=== PATIENT | female | born 1990 | race Caucasian/White ===

== ENCOUNTER 2019-09-14 13:31 | Inpatient (IN) | payer BC ==
[2019-09-20] MEDS ORDERED: RINGERS SOLUTION,LACTATED 1,000 ML IV ONE (19:38)
[2019-09-20] MEDS ORDERED: RINGERS SOLUTION,LACTATED 1,000 ML IV PRN (19:38)
[2019-09-20] MEDS ORDERED: DINOPROSTONE 10 MG VAGINAL INSERT.SR PV PRN (19:38)
[2019-09-20] MEDS ORDERED: ZOLPIDEM TARTRATE 5 MG TABLET PO PRN (19:49)
[2019-09-20] MEDS ORDERED: ACETAMINOPHEN 325 MG TABLET PO PRN (19:49)
[2019-09-20] MEDS ORDERED: MAG HYDROX/AL HYDROX/SIMETH SUSP 30 ML UDCUP PO PRN (19:49)
[2019-09-20 20:37] LABS: ABSOLUTE EOSINOPHILS # (AUTO) 0.1 10^3/uL (0.0-0.6); ABSOLUTE LYMPHOCYTES (AUTO) 1.2 10^3/uL (0.5-4.7); ABSOLUTE MONOCYTES (AUTO) 0.7 10^3/uL (0.1-1.4); ABSOLUTE NEUT (AUTO) 11.5 10^3/uL (1.7-8.2); BASOPHILS % (AUTO) 0.2 % (0-2); HEMATOCRIT 38.7 % (36.0-47.0); HEMOGLOBIN 13.4 g/dL (12.0-15.5); LYMPHOCYTES % (AUTO) 9.2 % (13-45); MEAN CORPUSCULAR HEMOGLOBIN 30.7 pg (27.0-33.4); MEAN CORPUSCULAR HGB CONC 34.6 g/dL (32.0-36.0); MEAN CORPUSCULAR VOLUME 89 fl (80-97); MONOCYTES % (AUTO) 4.9 % (3-13); PLATELET COUNT 230 10^3/uL (150-450); RED BLOOD COUNT 4.36 10^6/uL (3.72-5.28); RED CELL DISTRIBUTION WIDTH 12.5 % (11.5-14.0); SEGMENTED NEUTROPHILS % (AUTO) 84.7 % (42-78); TOTAL CELLS COUNTED % (AUTO) 100 %; WHITE BLOOD COUNT 13.5 10^3/uL (4.0-10.5)
[2019-09-20] MEDS ORDERED: DINOPROSTONE 10 MG VAGINAL INSERT.SR ONE (20:51)
[2019-09-20 20:53] LABS: APPEARANCE,URINE CLEAR; BILIRUBIN,URINE NEGATIVE (NEGATIVE); COLOR,URINE YELLOW; GLUCOSE, URINE NEGATIVE (NEGATIVE); KETONES,URINE NEGATIVE (NEGATIVE); LEUKOCYTE ESTERASE,URINE NEGATIVE (NEGATIVE); NITRITE,URINE NEGATIVE (NEGATIVE); PROTEIN,URINE 30 mg/dL (NEGATIVE); URINE SPECIFIC GRAVITY 1.015; UROBILINOGEN,URINE NEGATIVE mg/dL (<2.0)
[2019-09-20 21:15] LABS: URINE AMPHETAMINES SCREEN NEGATIVE; URINE BARBITURATES SCREEN NEGATIVE; URINE BENZODIAZEPINES SCREEN NEGATIVE; URINE COCAINE SCREEN NEGATIVE; URINE MARIJUANA (THC) SCREEN NEGATIVE; URINE METHADONE SCREEN NEGATIVE; URINE PHENCYCLIDINE SCREEN NEGATIVE
[2019-09-20 22:58] LABS: ALBUMIN 3.5 g/dL (3.5-5.0); ALKALINE PHOSPHATASE 158 U/L (38-126); ANION GAP 10 (5-19); ASPARTATE AMINO TRANSFERASE 16 U/L (14-36); BILIRUBIN,DIRECT 0.2 mg/dL (0.0-0.4); BILIRUBIN,TOTAL 0.2 mg/dL (0.2-1.3); BLOOD UREA NITROGEN 11 mg/dL (7-20); CALCIUM 9.8 mg/dL (8.4-10.2); CARBON DIOXIDE 24 mmol/L (22-30); CHLORIDE 102 mmol/L (98-107); GLUCOSE 86 mg/dL (75-110); TOTAL PROTEIN 6.7 g/dL (6.3-8.2); URIC ACID 3.7 mg/dL (2.5-6.2)
[2019-09-20 23:01] LABS: UR PRO/CREAT RATIO RESULT 0.2 mg/mg (0.0-0.2); URINE PROTEIN 14.3 mg/dL (<12)
[2019-09-21] MEDS ORDERED: OXYTOCIN/NORMAL SALINE 20 UNIT/1,000 ML RTUINJ IV PRN ×2 (06:00→17:17)
--- NOTE | 2019-09-21 07:13 | Admission Physical ---
Datetime Report Generated by CPN: 09/21/2019 07:13 CURRENT ADMISSION Chief Complaint: Scheduled Induction of Labor Indication for Induction: Post Dates Admit Impression : Postterm, Intrauterine ; Induction of Labor Admit Plan: Initiate Labor Protocol; Initiate Labor Induction Protocol ALLERGIES Medication Allergies: Yes Medication Allergies: sulfamethoxazole/Vomiting (09/20/2019); trimethoprim/Vomiting (09/20/2019) Latex: No Latex Allergies OBSTETRICAL HISTORY EDC: 09/14/2019 00:00 : 1 Para: 0 Term: 0 : 0 SAB: 0 IAB: 0 Ectopic: 0 Livin Cesareans: 0 VBACs: 0 Multiple Births: 0 Gestational Diabetes: No Rh Sensitization: No Incompetent Cervix: No ROSE: No Infertility: No ART Treatment: No Uterine Anomaly: No IUGR: No Hx Previous C/S: No Macrosomia: No Hx Loss/Stillborn: No PIH: No Hx : No Placenta Previa/Abruption: No Depression/PP Depression: No PTL/PROM: No Post Hemorrhage: No Current Procedures: Ultrasound; NST Obstetrical History Comments: G1-Current SEE RECORDS Alcohol: No Marijuana : No Cocaine: No Other Illicit Drugs: No Cigarettes: Never Smoker. 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 Heart Disease: No Hosp/Surgery: No Autoimmune Disorder: No Anesthetic Complications: No Kidney Disease: No Abnormal Pap Smear: No Neuro/Epilepsy: No Psychiatric Disorders: No Other Medical Diseases: No Hepatitis/Liver Disease: No Significant Family History: No Varicosities/Phlebitis: No Trauma/Violence : No Thyroid Dysfunction: No INFECTIOUS HISTORY Gonorrhea: No Genital Herpes: No Chlamydia: No Tuberculosis: No Syphilis: No Hepatitis: No HIV/AIDS Exposure: No Rash or Viral Illness: No HPV: No PHYSICAL EXAM General: Normal HEENT: Normal Neurologic: Normal Thyroid: Normal Heart: Normal Lungs: Normal Breast: Normal Back: Normal Abdomen: Normal Genitourinary Exam: Normal Extremities: Normal DTRs: Normal Pelvic Type: Adequate Vital Signs: Reviewed; Within Normal Limits VAGINAL EXAM Dilatation: 1 Effacement: 0 Station: -3 Contraction Comments: no regular MEMBRANES Membranes: Intact FETUS A EGA: 41.0 Monitoring: External US FHR- Baseline: 130 Variability: Moderate 6-25bpm Accelerations: 15X15 Decelerations: None Admit Comment: G1 at 41.0 wks EGA for IOL due to post dates -Admit to LDR -VS q 1 hr -CEFM and toco -cervidil tonight placed 2100 -GBS negative -Plan for PLANS FOR LABOR AND DELIVERY Labor and Delivery: None Pain Management: Epidural Feeding Preference: Breast Benefit of Breast Feed Discussed: Yes Circumcision: No INFORMED CONSENT Informed Consent Obtained: Vaginal Delivery; Section Delivery; Dilatation and Curretage; Risks, Benefits and Alternatives Discussed Signature: with User ID: [email or web address] : with User ID: [email or web address]
[2019-09-21] MEDS ORDERED: MISOPROSTOL 0.2 MG TABLET ONE ×3 (09:29→22:30)
[2019-09-21] MEDS ORDERED: LIDOCAINE 1% INJ-PF (10 MG/ML) 30 ML SDV ONE (09:29)
[2019-09-21] MEDS ORDERED: FENTANYL/BUPIVACAINE/NS/PF 300 MCG/150 ML RTUINJ EPI ONE (09:29)
[2019-09-21] MEDS ORDERED: OXYTOCIN 10 UNIT/ML VIAL ONE (09:29)
[2019-09-21] MEDS ORDERED: EPHEDRINE SULFATE INJ 50 MG/1 ML AMPULE ONE (09:29)
[2019-09-21] MEDS ORDERED: OXYTOCIN/NORMAL SALINE 20 UNIT/1,000 ML RTUINJ ONE (09:30)
[2019-09-21] MEDS ORDERED: BUPIVACAINE HCL 0.25 % INJ/PF (2.5 MG/1 ML) 30 ML VIAL ONE (09:30)
[2019-09-21] MEDS ORDERED: PSEUDOEPHEDRINE HCL 30 MG TABLET PO PRN (17:17)
[2019-09-21] MEDS ORDERED: BENZOCAINE/MENTHOL AEROSOL SPRAY 56 ML TOP PRN (17:17)
[2019-09-21] MEDS ORDERED: GLYCERIN/WITCH HAZEL LEAF 1 EACH MED..WIPE TP PRN (17:17)
[2019-09-21] MEDS ORDERED: PROMETHAZINE HCL 25 MG SUPP.RECT PR PRN (17:17)
[2019-09-21] MEDS ORDERED: MAGNESIUM HYDROXIDE SUSP 30 ML UDCUP PO PRN (17:17)
[2019-09-21] MEDS ORDERED: PROMETHAZINE HCL INJ 25 MG/1 ML VIAL IV PRN (17:17)
[2019-09-21] MEDS ORDERED: ACETAMINOPHEN 325 MG TABLET PO PRN (17:17)
[2019-09-21] MEDS ORDERED: DIBUCAINE 1% OINTMENT 28 GM TP PRN (17:17)
[2019-09-21] MEDS ORDERED: PROMETHAZINE HCL 25 MG TABLET PO PRN (17:17)
[2019-09-21] MEDS ORDERED: NA PHOS,M-B/NA PHOS,DI-BA (ADULT) 133 ML ENEMA PR PRN (17:17)
[2019-09-21] MEDS ORDERED: MEASLES,MUMPS&RUBELLA VACC/PF 0.5 ML VIAL SUBCUT PRN (17:17)
[2019-09-21] MEDS ORDERED: DIPHENHYDRAMINE HCL 25 MG CAPSULE PO PRN (17:17)
[2019-09-21] MEDS ORDERED: DIPH/PERTUSS(ACELL)/TETANUS VAC/PF 0.5 ML SYR (>=10YO) IM PRN (17:17)
--- NOTE | 2019-09-21 18:11 | Delivery Summary ---
Del Sum A-C Datetime Report Generated by CPN: 09/21/2019 18:10 DELIVERY PERSONNEL DELIVERY PERSONNEL: [id number] Delivery Doctor:: Jaja Ramos CNM Labor and Delivery Nurse:: Reyna Henderson RNveterinary laboratory technician Nurse:: AGUILAR Brewster Nursery Nurse:: Cher Holt RN Nursery Nurse:: Elisa Valdovinos RN Motor Grader Operator/LOCKSTITCH SLEEVE SETTER: Nellie Cazares, ST MATERNAL INFORMATION Delivery Anesthesia: Epidural Medications After Delivery: Pitocin Bolus-Please Comment Delivery QBL: 50 Maternal Complications: None Provider Comments: after laboring down pt began pushing and with much effort made some progress. At some point a segment of cord was palpated but able to move back and out of the way. Dr. Vargas called into room and assessed pt for forcep or kiwi extraction but baby recovered well and continue to tolerate pushing. Pt continue pushing and eventually delivered a viable baby boy thru nuchal, bilateral compound hands, arm and foot cord. Vigorous respiratory effort and cry with tactile stimulation, terminal meconium noted. Cord clamped x2 and cut by FOB (3vc noted, cord blood obtained). Vaginal and perineal inspection revealed abrasion as noted. Fundus firm scant bleeding. Mother and baby remain skin to skin and bonding at this time. Nursery in room for delivery LABOR SUMMARY EDC: 09/14/2019 00:00 No. Babies in Womb: 1 Attempted: No Labor Anesthesia: Epidural LABOR INFORMATION Reason for Induction: Post Dates Onset of Labor: 09/21/2019 09:00 Complete Dilatation: 09/21/2019 12:13 Cervical Ripening Agents: Cervidil Oxytocin: Augmentation Group B Beta Strep: negative Antibiotics # of Doses: 0 Steroids Given: None Reason Steroids Not Administered: Not Applicable MEMBRANES Membranes Rupture Method: Spontaneous Rupture of Membranes: 09/21/2019 12:13 Length of Rupture (hr): 4.48 Amniotic Fluid Color: Clear Amniotic Fluid Amount: Small Amniotic Fluid Odor: Normal STAGES OF LABOR Stage 1 hr: 3 Stage 1 min: 13 Stage 2 hr: 4 Stage 2 min: 29 Stage 3 hr: 0 Stage 3 min: 3 Total Time in Labor hr: 7 Total Time in Labor min: 45 VAGINAL DELIVERY Episiotomy: None Laceration #1: None Laceration Extension #1: N/A Other Laceration: right labial Laceration Repair: Not Applicable Laceration Repair Note: hemostatic no repair needed Sponge Count Correct: N/A Sharps Count Correct: N/A CSECTION DELIVERY Primary Indication: N/A Secondary Indication: N/A CSection Incidence: N/A Labor: N/A Elective: N/A CSection Incision: N/A BABY A INFORMATION Delivery Date/Time: 09/21/2019 16:42 Method of Delivery: Vaginal Born in Route : No : N/A Forceps: N/A Vacuum Extraction: N/A Shoulder Dystocia : No PRESENTATION/POSITION BABY A Presentation: Cephalic Cephalic Presentation: Vertex Vertex Position: Right Occipital Transverse Breech Presentation: N/A PLACENTA INFORMATION BABY A Placenta Delivery Time : 09/21/2019 16:45 Placenta Method of Delivery: Spontaneous Placenta Status: Delivered SCORES BABY A Heart Rate 1 min: >100 bpm Resp Effort 1 min: Good Cry Reflex Irritability 1 min: Cough or Sneeze or Pulls Away Muscle Tone 1 min: Some Flexion of Extremities Color 1 min: Blue/Pale SCORE 1 MIN: 7 Heart Rate 5 min: >100 bpm Resp Effort 5 min: Good Cry Reflex Irritability 5 min: Cough or Sneeze or Pulls Away Muscle Tone 5 min: Some Flexion of Extremities Color 5 min: Body [place], Extremities Blue SCORE 5 MIN: 8 INFORMATION BABY A Gestational Age at Delivery: 41.0 Gestational Status: Late Term- 41- 41.6 Weeks Outcome : Liveborn Infant Condition : Stable Infant Sex: Female IDENTIFICATION BABY A Infant Verification Date/Time: 09/21/2019 16:59 ID Band Number: [id number] Mother's Name Verified: Yes Infant RN Verifying : [email or web address] WEIGHT/LENGTH BABY A Infant Birthweight (gm): 2985 Weight (lb): 6 Infant Weight (oz): 9 Infant Length (in): 21.75 Length (cm): 55.25 CORD INFORMATION BABY A No. Cord Vessels: 3 Nuchal Cord : Around Neck x1, Loose Nuchal Cord- Other: body, foot Cord Blood Taken: Yes-For Eval (Mom's Blood Type - or O+) Infant Suction: None ASSESSMENT BABY A Complications: Meconium Complications- Other: body cord, compund presentation Physical Findings at Delivery: Caput Succedaneum; Molding of the Head; Puncture Wound from Scalp Electrode Infant Respirations: Appears Normal Skin to Skin: Yes Housing Counselor/ALS Called : No Infant Care By: Сергей Holt RN Transferred To: Remains with Mother BABY B INFORMATION : N/A SIGNATURES Assignment: Elaine Vargas MD Signature: with User ID: [email or web address] : with User ID: [email or web address]
[2019-09-21] MEDS ORDERED: BENZOCAINE/MENTHOL AEROSOL SPRAY 56 ML ONE (18:21)
[2019-09-21] MEDS ORDERED: IBUPROFEN 800 MG TABLET ONE (18:21)
[2019-09-21] MEDS: IBUPROFEN 800 MG TABLET PO SCH (18:24)
[2019-09-21 18:41] LABS: HEMATOCRIT 35.5 % (36.0-47.0); HEMOGLOBIN 12.2 g/dL (12.0-15.5); MEAN CORPUSCULAR HEMOGLOBIN 30.1 pg (27.0-33.4); MEAN CORPUSCULAR HGB CONC 34.5 g/dL (32.0-36.0); MEAN CORPUSCULAR VOLUME 87 fl (80-97); PLATELET COUNT 206 10^3/uL (150-450); RED BLOOD COUNT 4.06 10^6/uL (3.72-5.28); RED CELL DISTRIBUTION WIDTH 12.5 % (11.5-14.0); WHITE BLOOD COUNT 25.8 10^3/uL (4.0-10.5)
[2019-09-21 18:57] LABS: ALBUMIN 3.3 g/dL (3.5-5.0); ALKALINE PHOSPHATASE 157 U/L (38-126); ANION GAP 8 (5-19); ASPARTATE AMINO TRANSFERASE 24 U/L (14-36); BILIRUBIN,DIRECT 0.1 mg/dL (0.0-0.4); BILIRUBIN,TOTAL 0.4 mg/dL (0.2-1.3); BLOOD UREA NITROGEN 11 mg/dL (7-20); CARBON DIOXIDE 22 mmol/L (22-30); CHLORIDE 104 mmol/L (98-107); GLUCOSE 92 mg/dL (75-110); POTASSIUM 3.9 mmol/L (3.6-5.0); TOTAL PROTEIN 6.2 g/dL (6.3-8.2); URIC ACID 4.7 mg/dL (2.5-6.2)
[2019-09-21 19:11] LABS: ABSOLUTE LYMPHOCYTES# (MANUAL) 0.5 10^3/uL (0.5-4.7); ABSOLUTE MONOCYTES # (MANUAL) 1.3 10^3/uL (0.1-1.4); BAND NEUTROPHILS % (MANUAL) 1 % (3-5); BASOPHILS % (MANUAL) 0 % (0-2); EOSINOPHILS % (MANUAL) 0 % (0-6); LYMPHOCYTES % (MANUAL) 2 % (13-45); MONOCYTES % (MANUAL) 5 % (3-13); PLATELET COMMENT ADEQUATE; RBC MORPHOLOGY COMMENT NORMO-CYTIC/CHROMIC; SEGMENTED NEUTROPHILS % (MAN) 92 % (42-78); TOTAL CELLS COUNTED 100
[2019-09-21] MEDS ORDERED: NIFEDIPINE 30 MG TAB.ER.24 PO ONE (19:43)
[2019-09-21] MEDS: FAMOTIDINE 20 MG TABLET PO SCH (22:00)
[2019-09-21] MEDS ORDERED: LOPERAMIDE HCL 2 MG CAPSULE ONE (22:28)
[2019-09-21] MEDS ORDERED: CARBOPROST TROMETHAMINE INJ 250 MCG/1 ML AMPULE ONE (22:29)
[2019-09-21] MEDS ORDERED: FENTANYL CITRATE INJ/PF 100 MCG/2 ML AMPUL ONE (23:06)
[2019-09-21] MEDS ORDERED: NORMAL SALINE 250 ML IV PRN (23:17)
[2019-09-21] MEDS ORDERED: PIPERACILLIN/TAZOBACTAM 3.375 GM VIAL IV PRN (23:22)
[2019-09-21 23:48] LABS: HEMATOCRIT 27.2 % (36.0-47.0); MEAN CORPUSCULAR HEMOGLOBIN 30.5 pg (27.0-33.4); MEAN CORPUSCULAR VOLUME 87 fl (80-97); PLATELET COUNT 235 10^3/uL (150-450); RED BLOOD COUNT 3.12 10^6/uL (3.72-5.28); RED CELL DISTRIBUTION WIDTH 12.4 % (11.5-14.0); WHITE BLOOD COUNT 23.6 10^3/uL (4.0-10.5)
[2019-09-21 23:50] LABS: HEMOGLOBIN 9.5 g/dL (12.0-15.5)
[2019-09-21] MEDS ORDERED: OXYTOCIN/NORMAL SALINE 20 UNIT/1,000 ML RTUINJ IV ONE (23:59)
[2019-09-21] MEDS ORDERED: CARBOPROST TROMETHAMINE INJ 250 MCG/1 ML AMPULE IM ONE (23:59)
[2019-09-21] MEDS ORDERED: DIPHENOXYLATE HCL/ATROP SULF 2.5-0.025 MG TABLET PO ONE (23:59)
[2019-09-21] MEDS ORDERED: MISOPROSTOL 0.1 MG TABLET PR ONE (23:59)
[2019-09-22 00:12] LABS: ABSOLUTE LYMPHOCYTES# (MANUAL) 0.7 10^3/uL (0.5-4.7); ABSOLUTE MONOCYTES # (MANUAL) 0.7 10^3/uL (0.1-1.4); BASOPHILS % (MANUAL) 0 % (0-2); EOSINOPHILS % (MANUAL) 0 % (0-6); LYMPHOCYTES % (MANUAL) 3 % (13-45); MONOCYTES % (MANUAL) 3 % (3-13); SEGMENTED NEUTROPHILS % (MAN) 94 % (42-78); TOTAL CELLS COUNTED 100
[2019-09-22 00:13] LABS: PLATELET COMMENT ADEQUATE
[2019-09-22 00:18] LABS: RBC MORPHOLOGY COMMENT NORMO-CYTIC/CHROMIC
[2019-09-22] MEDS: NIFEDIPINE 30 MG TAB.ER.24 PO SCH ×3 (00:29→22:03)
[2019-09-22] MEDS ORDERED: FENTANYL CITRATE INJ/PF 100 MCG/2 ML AMPUL IV ONE (00:30)
[2019-09-22] MEDS: PIPERACILLIN/TAZOBACTAM 3.375 GM VIAL IV SCH ×2 (00:55→05:55)
[2019-09-22] MEDS: IBUPROFEN 800 MG TABLET PO SCH ×3 (02:26→17:09)
[2019-09-22 07:09] LABS: HEMATOCRIT 23.2 % (36.0-47.0); MEAN CORPUSCULAR HEMOGLOBIN 30.1 pg (27.0-33.4); MEAN CORPUSCULAR HGB CONC 34.2 g/dL (32.0-36.0); MEAN CORPUSCULAR VOLUME 88 fl (80-97); PLATELET COUNT 213 10^3/uL (150-450); RED BLOOD COUNT 2.63 10^6/uL (3.72-5.28); RED CELL DISTRIBUTION WIDTH 12.7 % (11.5-14.0); WHITE BLOOD COUNT 17.6 10^3/uL (4.0-10.5)
[2019-09-22 07:16] LABS: HEMOGLOBIN 7.9 g/dL (12.0-15.5)
--- NOTE | 2019-09-22 07:44 | PDOC PROGRESS REPORT ---
Subjective Progress Note for:: 09/21/19 Subjective:: called to room for ppH at 4701-4540 approx 6 hours post delivery Reason For Visit: /INDUCTION/delivered/now pph Physical Exam - Physical Exam Vital Signs: Temp Pulse Resp BP Pulse Ox 98.0 F 105 H 18 133/79 H 99 09/22/19 03:17 09/22/19 03:17 09/22/19 03:17 09/22/19 03:17 09/22/19 03:17 Intake & Output 09/21/19 09/22/19 09/23/19 06:59 06:59 06:59 Weight 101.1 kg General appearance: PRESENT: cooperative, mild distress Head exam: PRESENT: atraumatic, normocephalic Respiratory exam: PRESENT: clear to auscultation calli, symmetrical, unlabored Cardiovascular exam: PRESENT: RRR. ABSENT: diastolic murmur, rubs, systolic murmur Pulses: PRESENT: normal dorsalis pedis pul, +2 pedal pulses bilateral GI/Abdominal exam: PRESENT: normal bowel sounds, soft. ABSENT: distended, guarding, mass, organolmegaly, rebound, tenderness Rectal exam: PRESENT: deferred Neurological exam: PRESENT: alert, awake, oriented to person, oriented to place, oriented to time, oriented to situation, CN II-XII grossly intact. ABSENT: motor sensory deficit Psychiatric exam: PRESENT: appropriate affect, normal mood. ABSENT: homicidal ideation, suicidal ideation Skin exam: PRESENT: dry, intact, warm. ABSENT: cyanosis, rash Result Laboratory Results: 09/22/19 06:39 09/21/19 18:29 09/20/19 09/21/19 09/21/19 20:20 18:29 18:29 WBC 25.8 H RBC 4.06 Hgb 12.2 Hct 35.5 L MCV 87 MCH 30.1 MCHC 34.5 RDW 12.5 Plt Count 206 Seg Neutrophils % Not Reportable Sodium 134.2 L Potassium 3.9 Chloride 104 Carbon Dioxide 22 Anion Gap 8 BUN 11 Creatinine 0.52 Est GFR ( Amer) > 60 Glucose 92 Uric Acid 4.7 Calcium 9.0 Total Bilirubin 0.4 AST 24 Alkaline Phosphatase 157 H Total Protein 6.2 L Albumin 3.3 L Blood Type O POSITIVE Antibody Screen NEGATIVE 09/21/19 09/22/19 23:33 06:39 WBC 23.6 H 17.6 H RBC 3.12 L 2.63 L Hgb 9.5 L D 7.9 L Hct 27.2 L 23.2 L MCV 87 88 MCH 30.5 30.1 MCHC 35.0 34.2 RDW 12.4 12.7 Plt Count 235 213 Seg Neutrophils % Not Reportable Sodium Potassium Chloride Carbon Dioxide Anion Gap BUN Creatinine Est GFR ( Amer) Glucose Uric Acid Calcium Total Bilirubin AST Alkaline Phosphatase Total Protein Albumin Blood Type Antibody Screen Status: Imported from PACS Assessment & Plan - Diagnosis (1) Delayed hemorrhage, delivered, current hospitalization Is this a current diagnosis for this admission?: Yes Plan: 657ml QBL for pph. Stat CBC ordered [place] to gravity placed. 350ml urine in bag Hemabate, cytotec given. Pitocin bag hung for 125ml/hr reviewed may need transfusion. [place] performed and clot removed uterine tone improved. Zosyn ordered for 24 hours due to uterine manipulation (2) Hypertension affecting , delivered, current hospitalization Is this a current diagnosis for this admission?: Yes Plan: procardia for BP control (3) Vaginal delivery Is this a current diagnosis for this admission?: Yes Plan: now with delayed pph - Time Time Spent with patient: 35 or more minutes Medications reviewed and adjusted accordingly: Yes Anticipated discharge: Home Within: within 36 hours - Inpatient Certification Based on my medical assessment, after consideration of the patient's comorbidities, presenting symptoms, or acuity I expect that the services needed warrant INPATIENT care.: Yes I certify that my determination is in accordance with my understanding of Medicare's requirements for reasonable and necessary INPATIENT services [42 CFR 412.3e].: Yes Medical Necessity: Need Close Monitoring Due to Risk of Patient Decompensation, Need For IV Fluids, Need for Pain Control, Need for IV Antibiotics Post Hospital Care: D/C [place] Documentation
[2019-09-22] MEDS: SENNOSIDES/DOCUSATE 8.6-50 MG 1 EACH TABLET PO SCH ×2 (09:27→11:52)
[2019-09-22] MEDS: FERROUS SULFATE 325 MG TABLET PO SCH ×3 (09:28→17:09)
[2019-09-22] MEDS: DOCUSATE SODIUM 100 MG CAPSULE PO SCH ×3 (09:29→17:10)
[2019-09-22] MEDS: PRENATAL VITAMIN W DHA CAPSULE PO SCH (09:29)
[2019-09-22] MEDS: FAMOTIDINE 20 MG TABLET PO SCH ×2 (11:52→22:17)
[2019-09-22 14:32] LABS: HEMATOCRIT 22.8 % (36.0-47.0); MEAN CORPUSCULAR HEMOGLOBIN 30.7 pg (27.0-33.4); MEAN CORPUSCULAR HGB CONC 34.9 g/dL (32.0-36.0); MEAN CORPUSCULAR VOLUME 88 fl (80-97); PLATELET COUNT 195 10^3/uL (150-450); RED BLOOD COUNT 2.59 10^6/uL (3.72-5.28); RED CELL DISTRIBUTION WIDTH 12.8 % (11.5-14.0); WHITE BLOOD COUNT 14.7 10^3/uL (4.0-10.5)
[2019-09-22] MEDS: PIPERACILLIN SODIUM/TAZOBACTAM 3.375 GM in NORMAL SALINE 100 ML IV SCH ×2 (15:13→22:01)
[2019-09-23] MEDS: IBUPROFEN 800 MG TABLET PO SCH ×2 (02:56→09:03)
[2019-09-23 05:29] LABS: HEMATOCRIT 24.3 % (36.0-47.0); HEMOGLOBIN 8.5 g/dL (12.0-15.5); MEAN CORPUSCULAR HEMOGLOBIN 30.5 pg (27.0-33.4); MEAN CORPUSCULAR HGB CONC 34.8 g/dL (32.0-36.0); MEAN CORPUSCULAR VOLUME 88 fl (80-97); PLATELET COUNT 226 10^3/uL (150-450); RED BLOOD COUNT 2.77 10^6/uL (3.72-5.28); RED CELL DISTRIBUTION WIDTH 12.6 % (11.5-14.0); WHITE BLOOD COUNT 14.1 10^3/uL (4.0-10.5)
[2019-09-23] MEDS: FERROUS SULFATE 325 MG TABLET PO SCH (09:03)
[2019-09-23] MEDS: PRENATAL VITAMIN W DHA CAPSULE PO SCH (09:03)
[2019-09-23] MEDS: DOCUSATE SODIUM 100 MG CAPSULE PO SCH (09:05)
[2019-09-23] MEDS: FAMOTIDINE 20 MG TABLET PO SCH (09:06)
--- NOTE | 2019-09-23 10:02 | PDOC DISCHARGE SUMMARY ---
Impression - Admit/DC Date/PCP Admission Date/Primary Care Provider: 09/20/19 19:09 AUSTIN FREEMAN MD Discharge Date: 09/23/19 - PP Day #2, doing well today, states feels better, denies dizziness or tachycardia. s/p 1 unit PRBC after delayed PPH. Pt desires to go home today. O+ Rubella Immune, . Hx of elevated BP at the end of her , but have been normal since delivering. - Discharge Diagnosis (1) Blood transfusion during current hospitalization Is this a current diagnosis for this admission?: Yes (2) Delayed hemorrhage, delivered, current hospitalization Is this a current diagnosis for this admission?: Yes (3) Encounter for induction of labor Is this a current diagnosis for this admission?: Yes (4) Hypertension affecting , delivered, current hospitalization Is this a current diagnosis for this admission?: Yes (5) Post-dates Is this a current diagnosis for this admission?: Yes (6) Vaginal delivery Is this a current diagnosis for this admission?: Yes - Additional Information Resuscitation Status: Full Code Discharge Diet: As Tolerated, Regular Discharge Activity: Activity As Tolerated, No Lifting Over 10 Pounds, Pelvic Rest Referrals: AUSTIN FREEMAN MD [Primary Care Provider] - Prescriptions: Ferrous Sulfate [Feosol 325 mg Tablet] 325 mg PO BID #60 tablet Ibuprofen [Motrin 800 mg Tablet] 800 mg PO Q8A #60 tablet Home Medications: Ferrous Sulfate [Feosol 325 mg Tablet] 325 mg PO BID #60 tablet 09/23/19 Ibuprofen [Motrin 800 mg Tablet] 800 mg PO Q8A #60 tablet 09/23/19 Vit/Dha [ Multi + Dha Capsule] 1 cap PO DAILY capsule 09/23/19 HPI Reason(s) for Admission: Induction of Labor Admission Note: elevated BP Procedures: NST, Ultrasound Intrapartum Procedure(s): Spontaneous Vaginal Delivery Intrapartum Procedure Note: manual sweep of uterus d/t PPH Complication(s): Hemorrhage-Uterine [place] Hospital Course Hospital Course: pt remains stable Results Laboratory Results: WBC 14.1 10^3/uL (4.0-10.5) H 09/23/19 05:17 RBC 2.77 10^6/uL (3.72-5.28) L 09/23/19 05:17 Hgb 8.5 g/dL (12.0-15.5) L 09/23/19 05:17 Hct 24.3 % (36.0-47.0) L 09/23/19 05:17 MCV 88 fl (80-97) 09/23/19 05:17 MCH 30.5 pg (27.0-33.4) 09/23/19 05:17 MCHC 34.8 g/dL (32.0-36.0) 09/23/19 05:17 RDW 12.6 % (11.5-14.0) 09/23/19 05:17 Plt Count 226 10^3/uL (150-450) 09/23/19 05:17 Lymph % (Auto) Not Reportable 09/21/19 23:33 [place] % (Auto) Not Reportable 09/21/19 23:33 Eos % (Auto) Not Reportable 09/21/19 23:33 Baso % (Auto) Not Reportable 09/21/19 23:33 Absolute Neuts (auto) Not Reportable 09/21/19 23:33 Absolute Lymphs (auto) Not Reportable 09/21/19 23:33 Absolute Monos (auto) Not Reportable 09/21/19 23:33 Absolute Eos (auto) Not Reportable 09/21/19 23:33 Absolute Basos (auto) Not Reportable 09/21/19 23:33 Total Counted 100 09/21/19 23:33 Seg Neutrophils % Not Reportable 09/21/19 23:33 Seg Neuts % (Manual) 94 % (42-78) H 09/21/19 23:33 Band Neutrophils % 1 % (3-5) L 09/21/19 18:29 Lymphocytes % (Manual) 3 % (13-45) L 09/21/19 23:33 Monocytes % (Manual) 3 % (3-13) 09/21/19 23:33 Eosinophils % (Manual) 0 % (0-6) 09/21/19 23:33 Basophils % (Manual) 0 % (0-2) 09/21/19 23:33 Abs Neuts (Manual) 22.2 10^3/uL (1.7-8.2) H 09/21/19 23:33 Abs Lymphs (Manual) 0.7 10^3/uL (0.5-4.7) 09/21/19 23:33 Abs Monocytes (Manual) 0.7 10^3/uL (0.1-1.4) 09/21/19 23:33 Absolute Eos (Manual) 0.0 10^3/uL (0.0-0.6) 09/21/19 23:33 Abs Basophils (Manual) 0.0 10^3/uL (0.0-0.2) 09/21/19 23:33 Platelet Comment ADEQUATE 09/21/19 23: RBC Morph Comment NORMO-CYTIC/CHROMIC 09/21/19 23: APTT 25.1 SEC (23.5-35.8) 09/21/19 23:33 Sodium 134.2 mmol/L (137-145) L 09/21/19 18: Potassium 3.9 mmol/L (3.6-5.0) 09/21/19 18: Chloride 104 mmol/L (98-107) 09/21/19 18: Carbon Dioxide 22 mmol/L (22-30) 09/21/19 18:29 Anion Gap 8 (5-19) 09/21/19 18:29 BUN 11 mg/dL (7-20) 09/21/19 18:29 Creatinine 0.52 mg/dL (0.52-1.25) 09/21/19 18:29 Est GFR ( Amer) > 60 (>60) 09/21/19 18:29 Est GFR (MDRD) Non-Af > 60 (>60) 09/21/19 18: Glucose 92 mg/dL (75-110) 09/21/19 18: Uric Acid 4.7 mg/dL (2.5-6.2) 09/21/19 18:29 Calcium 9.0 mg/dL (8.4-10.2) 09/21/19 18: Total Bilirubin 0.4 mg/dL (0.2-1.3) 09/21/19 18: Direct Bilirubin 0.1 mg/dL (0.0-0.4) 09/21/19 18:29 Neonat Total Bilirubin Not Reportable 09/21/19 18:29 Neonat Direct Bilirubin Not Reportable 09/21/19 18: Neonat Indirect Bili Not Reportable 09/21/19 18:29 AST 24 U/L (14-36) 09/21/19 18:29 ALT 13 U/L (<35) 09/21/19 18:29 Alkaline Phosphatase 157 U/L (38-126) H 09/21/19 18:29 Lactate Dehydrogenase 202 U/L (120-246) 09/21/19 18:29 Total Protein 6.2 g/dL (6.3-8.2) L 09/21/19 18:29 Albumin 3.3 g/dL (3.5-5.0) L 09/21/19 18:29 Urine Color YELLOW 09/20/19 19:50 Urine Appearance CLEAR 09/20/19 19:50 Urine pH 6.0 (5.0-9.0) 09/20/19 19:50 Ur Specific [place] 1.015 09/20/19 19:50 Urine Protein 30 mg/dL (NEGATIVE) H 09/20/19 19:50 Urine Glucose (UA) NEGATIVE mg/dL (NEGATIVE) 09/20/19 19:50 Urine Ketones NEGATIVE mg/dL (NEGATIVE) 09/20/19 19:50 Urine Blood NEGATIVE (NEGATIVE) 09/20/19 19:50 Urine Nitrite NEGATIVE (NEGATIVE) 09/20/19 19:50 Urine Bilirubin NEGATIVE (NEGATIVE) 09/20/19 19:50 Urine Urobilinogen NEGATIVE mg/dL (<2.0) 09/20/19 19:50 Ur Leukocyte Esterase NEGATIVE (NEGATIVE) 09/20/19 19:50 Urine Creatinine 84.0 mg/dL (16-327) 09/20/19 19:50 Protein/Creatinin Ratio 0.2 mg/mg (0.0-0.2) 09/20/19 19:50 Urine Total Protein 14.3 mg/dL (<12) H 09/20/19 19:50 Urine Ascorbic Acid NEGATIVE (NEGATIVE) 09/20/19 19:50 Urine Opiates Screen NEGATIVE 09/20/19 19:50 Urine Methadone Screen NEGATIVE 09/20/19 19:50 Ur Barbiturates Screen NEGATIVE 09/20/19 19:50 Ur Phencyclidine Scrn NEGATIVE 09/20/19 19:50 Ur Amphetamines Screen NEGATIVE 09/20/19 19:50 U Benzodiazepines Scrn NEGATIVE 09/20/19 19:50 Urine Cocaine Screen NEGATIVE 09/20/19 19:50 U Marijuana (THC) Screen NEGATIVE 09/20/19 19:50 RPR NONREACTIVE (NONREACTIVE) 09/20/19 20:20 Blood Type O POSITIVE 09/20/19 20:20 Blood Type Confirm O POSITIVE 09/21/19 23:38 Antibody Screen NEGATIVE 09/20/19 20:20 Crossmatch See Detail 09/20/19 20:20 Plan Health Concerns: Watch PP BP and increase iron rich foods Plan of Treatment: d/t to home, BP precautions reviewed, Iron rich foods reviewed. f/u with [facility] in one week for BP check Time Spent: Less than 30 Minutes
[2019-09-23 12:01] VITALS: BP 117/56
[2019-09-23] MEDS: NIFEDIPINE 30 MG TAB.ER.24 PO SCH (12:35)
[2019-09-23] MEDS: SENNOSIDES/DOCUSATE 8.6-50 MG 1 EACH TABLET PO SCH (12:36)
== END 2019-09-23 14:20 | disposition home or self-care (01) | DRG 806 ==
LOC: LR 09-20 19:09 → 2S 09-21 22:06
PROVIDERS: ADMIT Obstetrics & Gynecology; ATTEND Student in an Organized Health Care Education/Training Program
PROC: 10E0XZZ Delivery of Products of Conception, External Approach (ICD-10-PCS; principal; 2019-09-21)
DX: O48.0 Post-term pregnancy (principal); O72.2 Delayed and secondary postpartum hemorrhage; Z37.0 Single live birth; O69.81X0 Labor and delivery complicated by cord around neck, without compression, not applicable or unspecified; O32.6XX0 Maternal care for compound presentation, not applicable or unspecified; O77.0 Labor and delivery complicated by meconium in amniotic fluid; O16.4 Unspecified maternal hypertension, complicating childbirth; Z3A.41 41 weeks gestation of pregnancy
CPT/HCPCS: 36415; 36430; 80053; 80307; 81005; 82570; 83615; 84156; 84550; 85025; 85027; 85730; 86592; 86850; 86900; 86901; 86920; J2543; J2590; J3010; J3490; J7050; P9016